=== PATIENT | female | born 1995 | race Caucasian/White ===

== ENCOUNTER 2017-03-26 22:36 | Emergency (ER) | payer OTHER ==
[~2017-03-26] VITALS: Ht 162.6 cm; Wt 60.1 kg
[~2017-03-26 22:36] MED LIST: ALBUTEROL17 GM IH; CALCIUM500 M3 PO; DAY TIME COLD1 EACH; FLAGYL500 MG PO; IMITREX25 MG PO; PREDNISONE20 MG PO; PROAIR HFA8.5 GM IH; REGLAN10 MG PO; TORADOL10 MG PO; TRAZODONE HCL50 MG PO; VENLAFAXINE H37.5 M3 PO; VENTOLIN HFA18 GM IH; ZANTAC150 MG PO
[2017-03-26 23:07] LABS: MCH 31.1 PG (29.0-34.0); MCHC 33.6 G/DL (30.0-36.0); MCV 92.6 FL (83-99); MEAN PLAT.VOLUME 9.5 uM^3 (9.5-12.4); PLATELET COUNT 299 K/uL (156-360); RBC DIS.WIDTH-CV 13.5 % (11.8-14.6); RBC DIS.WIDTH-SD 46.3 % (39-53); RED BLOOD COUNT 4.21 M/uL (3.80-5.20); WHITE BLOOD COUNT 10.5 K/uL (4.1-10.2)
[2017-03-26 23:20] LABS: CHLORIDE 105 mEq/L (99-109); POTASSIUM 3.8 mEq/L (3.7-5.4); SODIUM 139 mEq/L (136-147)
[2017-03-26 23:21] LABS: GLUCOSE 87 mg/dL (70-99)
[2017-03-26 23:23] LABS: ANION GAP 9 MEQ/L (2-14)
[2017-03-26 23:34] LABS: QUANTITATIVE HCG < 4.0 MIU/ML
[2017-03-27] LABS: GFR ESTIMATE (CALCULATED) > 59 mL/min/
[2017-03-27 00:01] LABS: UREA NITROGEN (BUN) 8 mg/dL (9-23)
[2017-03-27] MEDS ORDERED: TORADOL10 MG PO (00:14)
[2017-03-27 00:42] VITALS: BP 107/74
[2017-03-27 10:31] LABS: HPCA INDEX 0.14
== END 2017-03-27 00:46 | disposition home or self-care (01) ==
LOC: EME 22:36
PROVIDERS: Physician Assistant
DX: N94.6 Dysmenorrhea, unspecified (principal); J45.909 Unspecified asthma, uncomplicated; F32.9 Major depressive disorder, single episode, unspecified; F17.200 Nicotine dependence, unspecified, uncomplicated
CPT/HCPCS: 80048; 84702; 85027; 86803; 86900; 86901; 99281; 99284; J1885